=== PATIENT | male | born 2000 | race Caucasian/White ===

== ENCOUNTER 2018-11-30 14:37 | Emergency (ER) | payer BC, SELFPAY ==
[2018-11-30 14:41] VITALS: BP 136/76; PULSE 66; RESP 15; TEMP 36.8; O2SAT 98
--- NOTE | 2018-11-30 15:09 | DI.RAD_ITS ---
SYMPTOMS/DIAGNOSIS: PAIN AND SWELLING IN 5TH METACARPAL S/P PUNCHING WALL RIGHT HAND: Three views. There is a comminuted fracture involving the distal shaft of the right 5th metacarpal. There is volar angulation of the fracture noted. No other fracture or dislocation is appreciated. There is soft tissue swelling of the hand. IMPRESSION: Right 5th metacarpal fracture as described above.
--- NOTE | 2018-11-30 15:10 | W.ED.GENAD ---
Discharge Plan Disposition Patient Disposition: HOME Discharge Details Chief Complaint: Orthopedic Clinical Impression: Closed fracture of fifth metacarpal bone Primary Care Provider: Kwabena Looney ED Provider: Mehran Reynolds Home Meds and New Rx's Prescriptions: Continued ProAir HFA 8.5 GM HFA aerosol inhaler 2 puff Inhalation Q4H PRN Qty: 1 RF: 3 Space Chamber Plus 1 EACH spacer 1 ea Miscellaneous Qty: 1 RF: 0 Discharge Instructions Instructions: Boxer Fracture (ED) Additional Instructions: Please keep splint intact, clean and dry. Please take ibuprofen over the counter - dose according to label. Follow-up with orthopedics. Call for an appointment. Return to the ER for any worsening or new concerning symptoms. Referrals: Chris Grimaldo MD [[facility] STAFF PHYSICIAN] - Medical Decision Making 18-year-old right-handed dominant male here with right hand pain and swelling with tenderness dorsal medial hand over fourth and fifth metacarpals. Neurovascular intact distally. Pain with extension and limited extension of the fourth and fifth digits at MCP. X-ray of the right hand reviewed and interpreted by me: 5th MC fracture. I called and spoke with oncall orthopedics Dr. Grimaldo who recommends splint and follow-up in 4-5 days. Ulnar gutter splint applied by me. Pt N/V intact post splint application. Usual and customary discharge instructions were provided to the patient. HPI General Mode of arrival: ambulatory. Date/Time Provider Initiated Documentation: 11/30/18 15:09. Limitations to Documentation: no limitations. Information obtained by: patient. HPI Narrative: 18-year-old right-handed male here with injury to his right hand. Patient has chief complaint of pain in his dorsal medial hand. It started last night after he punched a wall. Pain is moderate and worse on palpation and with movement of his fourth and fifth digits. No associated numbness. He does have pain and difficulty extending his fourth and fifth digit. Related Data Home Medications Medication Instructions Recorded Confirmed ProAir HFA 2 puff INHALATION Q4H PRN #1 12/04/16 11/30/18 inhaler Space Chamber Plus #1 12/04/16 11/15/18 Allergies Allergy/AdvReac Type Severity Reaction Status Date / Time iodine AdvReac Unknown Skin Rash Unverified 11/30/18 14:46 General Stated Complaint: Orthopedic WILDA: 4 Review of Systems Musculoskeletal Reports as per HPI Neurologic Reports as per HPI [facility] Medical History Asthma Fracture of right ankle Inguinal hernia bilateral, non-recurrent Umbilical hernia Surgical History Fracture, Closed Treatment Hernia Repair, Incisional Repair of umbilical hernia Family History Mother Asthma Father Essential hypertension GRANDPARENT Essential hypertension Hyperlipidemia Neoplasm Social History Smoking and Tabacco status: Never Exam Const General: cooperative, healthy appearing and no acute distress Cardio Rate: regular rate Rhythm: regular rhythm Pulses: radial pulses present on the right 2+ Skin Wounds: wounds noted (Superficial abrasions right hand) Extrem Right upper extremity: normal capillary refill and hand Details: neurosensory exam normal, tenderness Location: of the dorsal hand Location: over the 4th metacarpal and over the 5th metacarpal, swelling Location: of the dorsal hand Location: over the ulnar aspect, of the 4th digit and of the 5th digit and other (Patient has limited extension of his fourth and fifth digits) Course Vital Signs Temperature 36.8 C 11/30/18 14:41 Pulse 66 11/30/18 14:41 Respiratory Rate 15 11/30/18 14:41 Blood Pressure 136/76 11/30/18 14:41 Pulse Oximetry 98 11/30/18 14:41 Temperature 36.8 C 11/30/18 14:41 Temperature Source Temporal Artery Scan 11/30/18 14:41 Pulse 66 11/30/18 14:41 Respiratory Rate 15 11/30/18 14:41 Respiratory Effort Non-Labored 11/30/18 14:45 Blood Pressure 136/76 11/30/18 14:41 Blood Pressure Position Sitting 11/30/18 14:41 Pulse Oximetry 98 11/30/18 14:41 Oxygen Delivery Method Room Air 11/30/18 14:41 Oxygen Flow Rate 0 11/30/18 14:41 Pain Level 5 11/30/18 14:47
--- NOTE | 2018-11-30 15:19 | ED.GENADUL_ITS ---
Discharge Plan Disposition Patient Disposition: HOME Discharge Details Chief Complaint: Orthopedic Clinical Impression: Closed fracture of fifth metacarpal bone Primary Care Provider: Kwabena Looney ED Provider: Mehran Reynolds Home Meds and New Rx's Prescriptions: Continued ProAir HFA 8.5 GM HFA aerosol inhaler 2 puff Inhalation Q4H PRN Qty: 1 RF: 3 Space Chamber Plus 1 EACH spacer 1 ea Miscellaneous Qty: 1 RF: 0 Discharge Instructions Instructions: Boxer Fracture (ED) Additional Instructions: Please keep splint intact, clean and dry. Please take ibuprofen over the counter - dose according to label. Follow-up with orthopedics. Call for an appointment. Return to the ER for any worsening or new concerning symptoms. Referrals: Chris Grimaldo MD [[facility] STAFF PHYSICIAN] - Medical Decision Making 18-year-old right-handed dominant male here with right hand pain and swelling with tenderness dorsal medial hand over fourth and fifth metacarpals. Neurovascular intact distally. Pain with extension and limited extension of the fourth and fifth digits at MCP. X-ray of the right hand reviewed and interpreted by me: 5th MC fracture. I called and spoke with oncall orthopedics Dr. Grimaldo who recommends splint and follow-up in 4-5 days. Ulnar gutter splint applied by me. Pt N/V intact post splint application. Usual and customary discharge instructions were provided to the patient. HPI General Mode of arrival: ambulatory . Date/Time Provider Initiated Documentation: 11/30/18 15:09 . Limitations to Documentation: no limitations . Information obtained by: patient . HPI Narrative: 18-year-old right-handed male here with injury to his right hand. Patient has chief complaint of pain in his dorsal medial hand. It started last night after he punched a wall. Pain is moderate and worse on palpation and with movement of his fourth and fifth digits. No associated numbness. He does have pain and difficulty extending his fourth and fifth digit. Related Data Home Medications Medication Instructions Recorded Confirmed ProAir HFA 2 puff INHALATION Q4H PRN #1 12/04/16 11/30/18 inhaler Space Chamber Plus #1 12/04/16 11/15/18 Allergies Allergy/AdvReac Type Severity Reaction Status Date / Time iodine AdvReac Unknown Skin Rash Unverified 11/30/18 14:46 General Stated Complaint: Orthopedic WILDA: 4 Review of Systems Musculoskeletal Reports as per HPI Neurologic Reports as per HPI [facility] Medical History Asthma Fracture of right ankle Inguinal hernia bilateral, non-recurrent Umbilical hernia Surgical History Fracture, Closed Treatment Hernia Repair, Incisional Repair of umbilical hernia Family History Mother Asthma Father Essential hypertension GRANDPARENT Essential hypertension Hyperlipidemia Neoplasm Social History Smoking and Tabacco status: Never Exam Const General: cooperative, healthy appearing and no acute distress Cardio Rate: regular rate Rhythm: regular rhythm Pulses: radial pulses present on the right 2+ Skin Wounds: wounds noted (Superficial abrasions right hand) Extrem Right upper extremity: normal capillary refill and hand Details: neurosensory exam normal, tenderness Location: of the dorsal hand Location: over the 4th metacarpal and over the 5th metacarpal, swelling Location: of the dorsal hand Location: over the ulnar aspect, of the 4th digit and of the 5th digit and other (Patient has limited extension of his fourth and fifth digits) Course Vital Signs Temperature 36.8 C 11/30/18 14:41 Pulse 66 11/30/18 14:41 Respiratory Rate 15 11/30/18 14:41 Blood Pressure 136/76 11/30/18 14:41 Pulse Oximetry 98 11/30/18 14:41 Temperature 36.8 C 11/30/18 14:41 Temperature Source Temporal Artery Scan 11/30/18 14:41 Pulse 66 11/30/18 14:41 Respiratory Rate 15 11/30/18 14:41 Respiratory Effort Non-Labored 11/30/18 14:45 Blood Pressure 136/76 11/30/18 14:41 Blood Pressure Position Sitting 11/30/18 14:41 Pulse Oximetry 98 11/30/18 14:41 Oxygen Delivery Method Room Air 11/30/18 14:41 Oxygen Flow Rate 0 11/30/18 14:41 Pain Level 5 11/30/18 14:47
[2018-11-30 16:42] VITALS: BP 136/76; PULSE 66; RESP 15; TEMP 36.8; O2SAT 98
== END 2018-11-30 16:51 | disposition home or self-care (01) ==
LOC: ER 16:34
PROVIDERS: Emergency Provider Student in an Organized Health Care Education/Training Program; PCP Pediatrics
DX: S62.326A Displaced fracture of shaft of fifth metacarpal bone, right hand, initial encounter for closed fracture (principal); W22.09XA Striking against other stationary object, initial encounter
CPT/HCPCS: 26600; 73130

== ENCOUNTER 2018-12-06 10:06 | Outpatient (CLI) | payer BC, SELFPAY ==
--- NOTE | 2018-12-06 10:01 | DI.RAD_ITS ---
SYMPTOMS/DIAGNOSIS: F/U RT 5TH MC FX RIGHT HAND: Comparison is made with [id number]. There has been no change in the alignment of the fracture of the distal fifth metacarpal.
== END 2018-12-06 10:26 ==
PROVIDERS: PCP Pediatrics; Visit Provider Student in an Organized Health Care Education/Training Program
DX: S62.326A Displaced fracture of shaft of fifth metacarpal bone, right hand, initial encounter for closed fracture (principal)
CPT/HCPCS: 73130

== ENCOUNTER 2018-12-27 10:11 | Outpatient (CLI) | payer BC, SELFPAY ==
--- NOTE | 2018-12-27 10:09 | DI.RAD_ITS ---
SYMPTOMS/DIAGNOSIS: F/U RT 5TH MC FX RIGHT HAND: Three views. Comparison 12/06/18. There has been no change in alignment of the fracture involving the right fifth metacarpal. There has developed some callous formation about the fracture consistent with some interval healing. No new fractures or dislocations are seen. IMPRESSION: Healing right fifth metacarpal fracture.
== END 2018-12-27 10:31 ==
PROVIDERS: PCP Pediatrics; Visit Provider Student in an Organized Health Care Education/Training Program
DX: S62.326D Displaced fracture of shaft of fifth metacarpal bone, right hand, subsequent encounter for fracture with routine healing (principal)
CPT/HCPCS: 73130

== ENCOUNTER 2021-07-08 12:52 | Emergency (ER) | payer BC, SELFPAY ==
[2021-07-08 13:00] VITALS: BP 124/74; PULSE 69; RESP 20; TEMP 36.7; O2SAT 98
--- NOTE | 2021-07-08 13:00 | DI.RAD_ITS ---
Exam(s) XR FINGER LT MIDDLE EXAM: XR FINGER LT MIDDLE CLINICAL HISTORY: jammed 1 mo ago, swelling PIP. TECHNIQUE: 2D digital imaging was performed. COMPARISON: CR XR hand RT complete from 12/27/2018 FINDINGS: There is soft tissue swelling around the proximal interphalangeal joint of the 3rd-middle finger. Ho wever, there is no evidence of fracture or dislocation. No radiopaque foreign body. No osseous lesi ons. Bone density normal. IMPRESSION: DATA REPOSITORY: RADIATION DOSE DELIVERED:
--- NOTE | 2021-07-08 13:02 | W.ED.GENAD ---
Discharge Plan Disposition Patient Disposition: HOME Condition: Good Discharge Details Clinical Impression: Jammed interphalangeal joint of finger of left hand Primary Care Provider: Unknown,Unknown ED Provider: Tiff Castillo Home Meds and New Rx's Prescriptions: Continued albuterol sulfate [ProAir HFA] 8.5 GM HFA aerosol inhaler 2 puff Inhalation Q4H PRN Qty: 1 RF: 3 (DME) Space Chamber Plus 1 EACH spacer 1 ea Miscellaneous Qty: 1 RF: 0 Discharge Instructions Instructions: Finger Sprain (ED) Additional Instructions: Exam and imaging are reassuring here today. No evidence to suggest dislocation, fracture or ligamentous injury. Please encourage rest, ice, elevation. Tylenol and ibuprofen as needed for discomfort. Please continue to elizabeth tape his fingers to help with discomfort. Please follow-up with primary care in 2 weeks for reevaluation. If you develop new or worsening symptoms please seek care urgently once again. Referral for local primary care sent care management will assist with this. Discharge Data Discharge Date/Time-TO BE ENTERED AT DEPARTURE: 07/08/21 14:06 Medical Decision Making Patient is a pleasant [id number] 20-year-old male presenting today with chief complaint of swelling to the PIP joint of the left middle finger. He states he jammed approximately 1 month ago. Since that time, he has had swelling. Denies any numbness or tingling. Denies other injuries from the incident. States that when he pulled on the finger he does have improvement in his discomfort. With questioning if this could be dislocated. On exam, patient has notable swelling to the PIP joint of the left middle finger. He has intact capillary refill. Sensation is intact. He has full range of motion of the digit. Ligamentously intact against resistance. Range of motion of the finger, I want to check for fracture then dislocation. However, his long into the injury is likely healing. Will obtain x-ray for evaluation. X-ray reviewed by radiologist: FINDINGS: There is soft tissue swelling around the proximal interphalangeal joint of the 3rd-middle finger. However, there is no evidence of fracture or dislocation. No radiopaque foreign body. No osseous lesions. Bone density normal. Discussed findings with patient. Encourage rest, ice, elevation. Tylenol and ibuprofen as needed for discomfort. Advise follow-up with primary care for reevaluation. Return precautions were discussed. All of his questions and concerns were addressed, he is in agreement with this plan. HPI General Mode of arrival: ambulatory. Date/Time Provider Initiated Documentation: 07/08/21 13:02. Limitations to Documentation: no limitations. Information obtained by: patient and RN notes reviewed. History of Present Illness 20 year old M presents to the emergency department with the chief complaint of swelling PIP left middle finger, described as mild, with intensity rated at 3. Quality is described as aching, and is localized to the left and upper extremity. Patient reports no radiation. Patient started experiencing this month(s) (1) and it has been constant. Immobilization improves symptom(s), Movement worsens symptoms . Patient notes no other symptoms.. Patient did receive the following treatments prior to arrival, none Related Data Home Medications Medication Instructions Recorded Confirmed Space Chamber Plus #1 12/04/16 12/27/18 albuterol sulfate [ProAir HFA] 2 puff INHALATION Q4H PRN #1 12/04/16 12/27/18 inhaler Allergies Allergy/AdvReac Type Severity Reaction Status Date / Time iodine AdvReac Unknown Skin Rash Unverified 07/08/21 13:02 General Stated Complaint: Orthopedic WILDA: 4 Review of Systems Constitutional Constitutional: Reports as per HPI, Denies chills, Denies fever(s) and Denies weakness Musculoskeletal Musculoskeletal: Reports as per HPI and Denies tingling Integumentary/Breasts Skin/Breast: Reports as per HPI, Denies rash and Denies wounds Neurologic Neurologic: Reports as per HPI, Denies tingling, Denies paresthesias and Denies weakness [facility] Medical History (Updated 07/08/21 @ 13:57 by HUGO Hurst) Asthma Fracture of right ankle Inguinal hernia bilateral, non-recurrent Umbilical hernia Surgical History Fracture, Closed Treatment Hernia Repair, Incisional x2 Repair of umbilical hernia Family History Mother Asthma Father Essential hypertension GRANDPARENT Essential hypertension Hyperlipidemia Neoplasm Social History Smoking/Tobacco Use Status: Never Smoking risk assessment performed?: Yes Alcohol Intake: current Alcohol Intake frequency: 0-2 drinks per day Alcohol type: beer Drug use: Never Substance use type: does not use Do you feel safe at home: Yes Do you feel safe in your relationship?: Yes Exam Const General: cooperative, healthy appearing, comfortable, no acute distress, well developed and well groomed Nutritional Appearance: average body habitus and well nourished Orientation: alert and awake Resp Effort & Inspection: normal respiratory effort, able to speak in complete sentences and no respiratory distress Cardio Rate: regular rate Rhythm: regular rhythm Skin General skin exam: no rashes or lesions noted Lesions: no lesions Rashes: no rashes Trauma: no lacerations or abrasions Neuro General: patient alert and patient awake Cognition: normal cognition Speech: speech normal Gait: normal gait Motor: muscle tone normal throughout Sensory Exam: no sensory deficits noted Extrem Hand/finger images: 1. Area of swelling around joint. No ecchymosis. Full ROM. Ligamentously intact. Cap refill intact. Sensation intact. No palpable deformity. Psych Appearance: grossly normal and well kempt Mental Status: mental status grossly normal Speech and Movement: speech and movement normal Course Vital Signs Vital signs: Vital Signs Temperature 36.7 C 07/08/21 13:00 Pulse 69 07/08/21 13:00 Respiratory Rate 20 07/08/21 13:00 Blood Pressure 124/74 07/08/21 13:00 Pulse Oximetry 98 07/08/21 13:00 Temperature 36.7 C 07/08/21 13:00 Temperature Source Temporal Artery Scan 07/08/21 13:00 Pulse 69 07/08/21 13:00 Respiratory Rate 20 07/08/21 13:00 Blood Pressure 124/74 07/08/21 13:00 Blood Pressure Position Sitting 07/08/21 13:00 Pulse Oximetry 98 07/08/21 13:00 Oxygen Delivery Method Room Air 07/08/21 13:00 Oxygen Flow Rate 0 07/08/21 13:00 Pain Level 3 07/08/21 13:00
--- NOTE | 2021-07-08 14:00 | NUR.NOTE ---
Nursing Note: Referral given to Care Management to establish care w/PCP with routine follow up. Natali Calixto
--- NOTE | 2021-07-09 15:03 | CMPROGNOTE_ITS ---
- If Service Date Differs Date of service: 07/09/21 Time of Service: 15:04 Care Management Progress Note Gunner is seen in the ED for a jammed interphalangeal joint of finger of left hand. At the request of ED provider, CM coordinates a referral to Yonny Phoenix MD, of [facility], on-call provider, to assist Gunner in obtaining a follow up appointment with a PCP and in establishing care.
== END 2021-07-08 14:06 | disposition home or self-care (01) ==
PROVIDERS: Emergency Provider Physician Assistant
DX: M79.89 Other specified soft tissue disorders (principal); W23.1XXA Caught, crushed, jammed, or pinched between stationary objects, initial encounter
CPT/HCPCS: 99283; 73140